=== PATIENT | male | born 2000 | race Caucasian/White ===

== ENCOUNTER 2023-10-23 18:05 | Emergency (ER) | payer OTHER ==
[~2023-10-23] VITALS: Ht 185.4 cm; Wt 64.0 kg
[2023-10-23 21:38] VITALS: BP 116/70; PULSE 70; RESP 18
== END 2023-10-23 21:44 | disposition home or self-care (01) ==
LOC: EMS 18:10
DX: S30.22XA Contusion of scrotum and testes, initial encounter (principal); V89.2XXA Person injured in unspecified motor-vehicle accident, traffic, initial encounter; Y93.89 Activity, other specified; Y92.89 Other specified places as the place of occurrence of the external cause; Y99.8 Other external cause status
CPT/HCPCS: 76870; 99284; Z7502